=== PATIENT | female | born 1965 | race Caucasian/White ===

== ENCOUNTER 2025-02-09 08:00 | Outpatient (RCR) | payer SELFPAY ==
--- NOTE | 2024-12-29 09:47 | HP.PTEVAL ---
Patient's Visit Information Visit Information Visit Information: SULMA COLEMAN is a 59 year old F referred to Physical Therapy by Self Referred with a diagnosis of big toe pain. Date of Evaluation: 12/29/24 Physical Therapist: Joseph Wright, GAURAVT, OCS, CSCS Visit Plan Frequency: 1x/Week Duration: 4-6 Weeks Plan: weekly x 3-6 session for RPW(pt choice) Educated on resting from aggravating activities and benefits of suportive footwear. Subjective Subjective: Self referred to PT for R foot big toe top adn underneath. Been there for months. She is a runner and elliptciser. worsening over months. still running a couple miles per day or ellitical 20 minutes per day. Running is worse and then goes away but worse aftewards. Steering clear of heels. No treatment. Activitiy pretty normal now but worsening. Employed at [employer] not on feet alot but walks alot. Sleep is OK. Pain R big toe: Pain Intensity (Out of 10): 1 Pain Intensity Range: 0 and 5 Comment: NWB is comfortable Objective Objective: Walks normally into PT I without antalgia. Transfers and gait are I Tender to palpation big toe top and underneath in Met head area. moderately. AROM and strength in the ankle and big toe are symmetrical except big toe flexion R is painful so slightly weak. ankle AROM WFL 5 DF and 60 PF and 30 inv and 20 everssion. 4+/5 strength. metatarsals move well. Balance/Special Test Scores Lower Extremity Functional Score: 68 Goals Goal 1:: Big toe pain 1/10 at worst and manageable Goal Time Frame: 4-6 Weeks Goal 2:: run without increased pain. Goal Time Frame: 4-6 Weeks Rehabilitation Potential Physical Therapy Diagnosis: metatarsalgia R 1st. Rehabilitation Potential: Fair Anticipated Interventions Patient/Client Instruction: Educate patient on: Condition and Plan of Care For the Purpose of:: To decrease pain Comment: RPW For the Purpose of:: To decrease pain, To decrease swelling/inflammation, To improve nutrient delivery to tissue, To improve muscle performance and motor function and To improve gait and locomotor functions Text: Thank you for the opportunity to evaluate your patient. For Medicare and Medicare HMO plans, please review the plan of care and approve it. It will need to be FAXED BACK to us at [phone] for Medicare purposes. For Medicare only, by signing this I certify the plan of care. Please let me know if there are questions or concerns regarding this plan of care. Physician Signature: Date:
--- NOTE | 2025-05-17 12:33 | HP.PT.NRP ---
Patient Information Patient Information: SULMA COLEMAN was seen in my office for initial evaluation on 12/29/24. The following Plan of Care was established for this patient: POC Established Initial Frequency: 1x/Week Initial Duration: 4-6 Weeks Anticipated Interventions Patient/Client Instruction: Educate patient on: Condition and Plan of Care For the Purpose of:: To decrease pain Comment: RPW For the Purpose of:: To decrease pain, To decrease swelling/inflammation, To improve nutrient delivery to tissue, To improve muscle performance and motor function and To improve gait and locomotor functions Last Seen Last Seen: This patient was last seen in our office 02/09/25. Pertinent comments regarding their Physical therapy will appear below: Pt seen 5 visits of RPW POC and was doing well, did not neeed any further. Discontinue at this time At this point I will be discontinuing this patient from physical therapy. I would be happy to see this patient again in the future if found appropriate by the physician. Thank you! Joseph Wright, DPT, OCS, CSCS Balance/Gait/Functional tests Balance/Special Test Scores Lower Extremity Functional Score: 68
== END 2025-02-09 19:00 | disposition home or self-care (01) ==
LOC: PT 08:00
PROVIDERS: PCP Student in an Organized Health Care Education/Training Program
DX: M79.674 Pain in right toe(s) (principal)